=== PATIENT | male | born 1950 | race Caucasian/White ===

== ENCOUNTER → 2018-02-08 05:00 | Outpatient (REF) | payer MEDICARE, SELFPAY ==
[2018-02-08 08:31] LABS: Absolute Lymphocyte Count 1.09 X10^3/ul (0.83-4.51); Absolute Neutrophil Count 2.8 X10^3/uL (2.0-7.7); Basophil# 0.07 X10^3/uL; Basophil% 1.4 % (0-1); Eosinophil# 0.14 X10^3/uL; Eosinophils% 2.8 % (0-5); Hematocrit 32.1 % (40-54); Lymphocyte # 1.09 X10^3/ul (4.0); Lymphocyte % 21.8 % (19-41); Mean Corp Hgb Conc 31.2 g/gl (32-36); Mean Corpuscular Hgb 32.8 pg (27.0-32.0); Mean Corpuscular Volume 105.2 fL (80-94); Mean Platelet Vol. 8.6 fl (6.2-12.0); Monocyte# 0.78 X10^3/uL; Monocyte% 15.6 % (0-10); Neutrophil # 2.83 X10^3/uL (2.7-7.7); Neutrophil % 56.6 % (47-70); Platelet Count 612 K/mm3 (150-450); RBC Distribution Width CV 19.3 % (11.6-14.6); RBC Distribution Width SD 74.7 fl (35.1-43.9); Red Blood Count 3.05 M/mm3 (4.6-6.2)
[2018-02-08 08:32] LABS: Differential Indicated SCAN CRITERIA MET; POSITIVE COUNT NO; POSITIVE DIFFERENTIAL NO; POSITIVE MORPHOLOGY YES
[2018-02-08 08:52] LABS: Anisocytosis 1+; Hypochromasia 1+; Platelet Estimate MOD INC (ADEQ)
[2018-02-08 08:53] LABS: Hemoglobin A1c 5.2 % (4.2-6.3)
[2018-02-08 09:11] LABS: ALB/GLOB Ratio 0.7 RATIO (0.9-2.4); AST(SGOT) 17 U/L (15-37); Alanine Aminotransfer ALT/SGPT 15 U/L (16-61); Albumin, Serum 2.5 g/dL (3.2-5.0); Alkaline Phosphatase 146 U/L (45-117); Anion Gap 8 (5-15); BUN 10 mg/dL (7-18); Calcium,Total 8.3 mg/dL (8.5-10.1); Chloride 105 mmol/L (98-107); Cholesterol 120 mg/dL (200); EST Glomerular Filtration Rate 79 mL/min (>60); Est Glom Filt Rate - Afr Amer 96 mL/min (>60); Globulin 3.7 g/dL (2.2-4.2); Glucose 101 mg/dL (74-106); High Density Lipoprotein 25 mg/dL; Magnesium 2.3 mg/dL (1.6-2.6); Protein, Total 6.2 g/dL (6.4-8.2); Sodium Level 141 mmol/L (136-145); Thyroid Stim Hormone (TSH) 1.65 uIU/mL (0.358-3.74); Triglycerides 235 mg/dL; Very Low Density Lipoprotein 47 mg/dL (5-40)
[2018-02-08 09:16] LABS: Vitamin D,25 Hydroxy 14.9 ng/mL (29.95-100.01)
== END ==
LOC: OLS.ACW200 05:00
PROVIDERS: Visit Provider Family Medicine
DX: R62.7 Adult failure to thrive (principal); E43 Unspecified severe protein-calorie malnutrition; A04.72 Enterocolitis due to Clostridium difficile, not specified as recurrent; F10.10 Alcohol abuse, uncomplicated; L89.90 Pressure ulcer of unspecified site, unspecified stage
CPT/HCPCS: 36415; 80053; 80061; 82306; 83036; 83735; 84443; 85025

== ENCOUNTER → 2018-03-03 14:00 | Outpatient (REF) | payer MEDICARE, SELFPAY | LOC: OLS.ACW200 14:00 | PROVIDERS: Visit Provider Family Medicine | DX: R62.7 Adult failure to thrive (principal); E43 Unspecified severe protein-calorie malnutrition; A04.72 Enterocolitis due to Clostridium difficile, not specified as recurrent; F10.10 Alcohol abuse, uncomplicated; L89.90 Pressure ulcer of unspecified site, unspecified stage | CPT/HCPCS: 87493 ==

== ENCOUNTER → 2018-03-23 05:00 | Outpatient (REF) | payer MEDICARE, SELFPAY ==
[2018-03-23 08:21] LABS: Hematocrit 31.6 % (40-54); Mean Corp Hgb Conc 31.6 g/gl (32-36); Mean Corpuscular Hgb 32.2 pg (27.0-32.0); Mean Corpuscular Volume 101.6 fL (80-94); Mean Platelet Vol. 8.9 fl (6.2-12.0); Platelet Count 324 K/mm3 (150-450); RBC Distribution Width CV 15.6 % (11.6-14.6); RBC Distribution Width SD 58.4 fl (35.1-43.9); Red Blood Count 3.11 M/mm3 (4.6-6.2); White Blood Count 5.5 K/mm3 (4.4-11.0)
[2018-03-23 08:28] LABS: Scan Indicated on CBC? Y/N NO
== END ==
LOC: OLS.ACW100 05:00
PROVIDERS: Visit Provider Family Medicine
DX: R62.7 Adult failure to thrive (principal); E43 Unspecified severe protein-calorie malnutrition; A04.72 Enterocolitis due to Clostridium difficile, not specified as recurrent; F10.10 Alcohol abuse, uncomplicated; L89.90 Pressure ulcer of unspecified site, unspecified stage
CPT/HCPCS: 36415; 85027

== ENCOUNTER → 2018-04-20 05:00 | Outpatient (REF) | payer MEDICARE, SELFPAY ==
[2018-04-20 08:57] LABS: ALB/GLOB Ratio 0.9 RATIO (0.9-2.4); AST(SGOT) 19 U/L (15-37); Alanine Aminotransfer ALT/SGPT 21 U/L (16-61); Albumin, Serum 3.3 g/dL (3.2-5.0); Alkaline Phosphatase 88 U/L (45-117); BUN 16 mg/dL (7-18); BUN/Creat Ratio 16.4 RATIO (10-20); Calcium,Total 8.7 mg/dL (8.5-10.1); Chloride 105 mmol/L (98-107); Creatinine, Serum 0.98 mg/dL (0.70-1.30); EST Glomerular Filtration Rate 81 mL/min (>60); Est Glom Filt Rate - Afr Amer 99 mL/min (>60); Globulin 3.7 g/dL (2.2-4.2); Glucose 68 mg/dL (74-106); Potassium 4.4 mmol/L (3.5-5.1); Sodium Level 142 mmol/L (136-145)
[2018-04-20 08:58] LABS: Anion Gap 8 (5-15)
== END ==
LOC: OLS.ACW100 05:00
PROVIDERS: Visit Provider Family Medicine
DX: A04.72 Enterocolitis due to Clostridium difficile, not specified as recurrent (principal); R62.7 Adult failure to thrive; E43 Unspecified severe protein-calorie malnutrition; F10.10 Alcohol abuse, uncomplicated; L89.90 Pressure ulcer of unspecified site, unspecified stage
CPT/HCPCS: 36415; 80053